=== PATIENT | female | born 1945 | race Caucasian/White ===

== ENCOUNTER → 2024-03-28 10:45 | Outpatient (REF) | payer MEDICARE, OTHER, SELFPAY | LOC: PAVMRI 10:45 | PROVIDERS: ATTENDING PHYSICIAN Orthopaedic Surgery; FAMILY PHYSICIAN Nurse Practitioner | DX: M25.569 Pain in unspecified knee (principal) | CPT/HCPCS: 73721 ==

== ENCOUNTER 2024-07-10 06:03 | Day surgery (SDC) | payer MEDICARE, OTHER, SELFPAY ==
--- NOTE | 2024-06-26 12:58 | VNURNOTE ---
Patient is scheduled for an elective R TKA on 07/10/24- she is a same day patient with Dr Cary. Spoke with patient prior to surgery. Introduced role of [facility] Liaison. Patient reports that she lives with her spouse in a MULTI story home.
There are 3 steps to enter and a flight of steps to the second floor.
There is a first floor set up with bathroom and bedroom. She has a raised toilet seat. She will obtain a Rolling Walker. Advised to obtain and bring with her day of surgery.
PCP is Dr Chantal Dooley
Discussed [facility] joint protocol and post surgical plans.
Reviewed that she will have [facility] services initially and will then start outpatient PT.
Patient selects [facility] for home care needs and will go to 'an outpt PT in [place]' for outpatient PT. Date TBD.
Patient is in agreement with plan and states that her spouse will be home with her. [facility]
Plan: [facility] per [facility] joint protocol 07/10 then outpt PT TBD
[2024-07-01 11:35] LABS: Hematocrit 36.9 % (37.0-47.0); Hemoglobin 12.3 g/dL (12.0-16.0); Mean Corp Hgb Conc. 33.3 g/dL (33.0-37.0); Mean Corpuscular Hgb 30.3 pg (27.0-31.0); Mean Corpuscular Volume 90.9 fL (81.0-99.0); Mean Platelet Volume 10.3 fL (7.4-10.4); Platelet Count 231 10^3/uL (130-400); Red Blood Cell Count 4.06 10^6/uL (4.20-5.40); Red Cell Dist. Width 12.5 % (11.5-14.5); White Blood Cell Count 5.1 10^3/uL (4.8-10.8)
[2024-07-01 12:01] LABS: ALT (SGPT) 18 U/L (0-35); AST (SGOT) 31 U/L (14-36); Albumin 4.4 g/dl (3.5-5.0); Alkaline Phosphatase 156 U/L (38-126); Blood Urea Nitrogen 15 mg/dl (7-17); Calcium 9.9 mg/dl (8.4-10.2); Carbon Dioxide 32 mmol/L (22-30); Chloride 98 mmol/L (98-107); Glucose 86 mg/dl (70-99); Potassium 3.9 mmol/L (3.5-5.1); Sodium 137 mmol/L (135-145); Total Bilirubin 0.4 mg/dl (0.2-1.3); Total Protein 7.1 g/dl (6.3-8.2); eGFR > 60.00
[2024-07-01 14:11] VITALS: BMI 17.1
[2024-07-01 14:39] LABS: Glycohemoglobin (HgbA1c) 5.1 % (4.0-5.6)
[2024-07-04 13:17] VITALS: BMI 17.1
[2024-07-10] VITALS (14 sets, daily range): BP systolic 98–143; BP diastolic 47–73
[2024-07-10] MEDS: CELEBREX 200 MG PO (07:16)
[2024-07-10] MEDS: TYLENOL 650 MG PO (07:16)
[2024-07-10] MEDS: NORMOSOL-R/PLASMALYTE-A 1000 IV (07:17)
--- NOTE | 2024-07-10 07:30 | W.DS.TRANS ---
DC Summary - Supervisor Throwing Department
-
Discharge Instructions:
Sleep Apnea Risk Low
Discharge Diagnosis/Procedures R TKA 07/10/24
Diet As tolerated
Activity With Walker
Driving Restrictions No driving
Bathing Restrictions OK to Shower
Other Services PT
Instructions:
Stand-Alone Forms: SDS Total Hip and Knee D/C
Changes to Home Medications: Yes
Discharge Medications:
DC Medications w/original date entered in [facility]
cholecalciferol (vitamin D3) 25 mcg (1,000 unit) tablet (Vitamin D3) 25 mcg PO DAILY 06/28/24
diltiazem HCl 120 mg tablet,extended release 24 hr 120 mg PO DAILY 06/28/24
flecainide 100 mg tablet 100 mg PO BID 06/28/24
fluticasone furoate 100 mcg/actuation blister powder for inhalation (Arnuity Ellipta) 1 inh inhalation DAILY 06/28/24
fluticasone propionate 50 mcg/actuation nasal spray,suspension 1 spray intranasal PRN PRN nasal congestion 06/28/24
hydrochlorothiazide 25 mg tablet 25 mg PO DAILY 06/28/24
levothyroxine 88 mcg tablet 88 mcg PO SUTUTHSA 06/28/24
levothyroxine 88 mcg tablet 132 mcg PO MOWEFR 06/28/24
losartan 100 mg tablet 100 mg PO DAILY 06/28/24
magnesium oxide 100 mg PO DAILY 06/28/24
multivitamin 1 tab PO DAILY 06/28/24
rosuvastatin 10 mg tablet 10 mg PO DAILY 06/28/24
trazodone 100 mg tablet 100 mg PO HS 06/28/24
ursodiol 300 mg capsule 300 mg PO TID 06/28/24
vit C 250 mg-vit E 90 mg-zinc 40 mg-copper 1 [id number] capsule (PreserVision AREDS-2) 1 tab PO DAILY 06/28/24
dexamethasone 4 mg tablet 4 mg PO BID inflammation #6 tabs 07/01/24
famotidine 20 mg tablet 20 mg PO HS GI prophylaxis #30 tabs 07/01/24
gabapentin 300 mg capsule 300 mg PO HS sleep/pain #10 caps 07/01/24
mupirocin 2 % topical ointment 1 applic topical BID infection prevention #1 tube 07/01/24
ondansetron 4 mg disintegrating tablet 4 mg PO Q6H PRN n/v #20 tabs 07/01/24
oxycodone 5 mg tablet 5 mg PO Q6H PRN 1 tab moderate pain, 2 tabs severe pain #30 tabs 07/01/24
acetaminophen 325 mg tablet (Tylenol) 650 mg (2 x 325 mg) PO QID #1 tab 07/10/24
acetaminophen 500 mg tablet (Tylenol Extra Strength) 1,000 mg (2 x 500 mg) PO QID #0 tabs 07/10/24
apixaban 5 mg tablet (Eliquis) 2.5 mg (1/2 x 5 mg) PO BID Blood clot prevention/tx/afib #0 tabs 07/10/24
docusate sodium 100 mg capsule (Colace) 100 mg PO BID stool softner #1 cap 07/10/24
magnesium hydroxide 400 mg/5 mL oral suspension (Milk of Magnesia) 30 ml PO HS PRN Constipation #1 mL 07/10/24
sennosides 8.6 mg tablet (Senokot) 17.2 mg (2 x 8.6 mg) PO BID laxative #2 tabs 07/10/24
Home Medication Changes
dexamethasone 4 mg tablet 4 mg PO BID inflammation #6 tabs 07/01/24
famotidine 20 mg tablet 20 mg PO HS GI prophylaxis #30 tabs 07/01/24
gabapentin 300 mg capsule 300 mg PO HS sleep/pain #10 caps 07/01/24
mupirocin 2 % topical ointment 1 applic topical BID infection prevention #1 tube 07/01/24
ondansetron 4 mg disintegrating tablet 4 mg PO Q6H PRN n/v #20 tabs 07/01/24
oxycodone 5 mg tablet 5 mg PO Q6H PRN 1 tab moderate pain, 2 tabs severe pain #30 tabs 07/01/24
acetaminophen 325 mg tablet (Tylenol) 650 mg (2 x 325 mg) PO QID #1 tab 07/10/24
acetaminophen 500 mg tablet (Tylenol Extra Strength) 1,000 mg (2 x 500 mg) PO QID #0 tabs 07/10/24
apixaban 5 mg tablet (Eliquis) 2.5 mg (1/2 x 5 mg) PO BID Blood clot prevention/tx/afib #0 tabs 07/10/24
docusate sodium 100 mg capsule (Colace) 100 mg PO BID stool softner #1 cap 07/10/24
magnesium hydroxide 400 mg/5 mL oral suspension (Milk of Magnesia) 30 ml PO HS PRN Constipation #1 mL 07/10/24
sennosides 8.6 mg tablet (Senokot) 17.2 mg (2 x 8.6 mg) PO BID laxative #2 tabs 07/10/24
Pending Results: No
[2024-07-10] MEDS: ANCEF 5 IV (11:19)
[2024-07-10] MEDS: ROXICODONE 5 MG PO (11:44)
== END 2024-07-10 12:19 | disposition home or self-care (01) ==
LOC: SDS 06:03
PROVIDERS: ATTENDING PHYSICIAN Orthopaedic Surgery; FAMILY PHYSICIAN Nurse Practitioner; OTHER PHYSICIAN Physician Assistant Medical
PROC: 0SRC0J9 Replacement of Right Knee Joint with Synthetic Substitute, Cemented, Open Approach (ICD-10-PCS; 2024-07-10)
DX: M17.11 Unilateral primary osteoarthritis, right knee (principal); I10 Essential (primary) hypertension; J45.909 Unspecified asthma, uncomplicated; E78.5 Hyperlipidemia, unspecified; E03.9 Hypothyroidism, unspecified; I48.91 Unspecified atrial fibrillation; Z79.899 Other long term (current) drug therapy; Z79.01 Long term (current) use of anticoagulants
CPT/HCPCS: 27447; 36415; 73560; 80053; 83036; 85027; 87070; C1713; C1776